=== PATIENT | female | born 1990 | race Caucasian/White ===

== ENCOUNTER 2020-02-24 14:48 | Emergency (ER) | payer BC, SELFPAY ==
--- NOTE | 2020-02-24 14:38 | ECG_ITS ---
APPROVED REPORT Exam: Resting ECG HR:79 bpm ECG Measurements Heart Rate 79 AXES AZ 136 P 58 QRSd 84 QRS 62 QT 388 T 37 QTc 444 <Conclusion> Normal sinus rhythm Normal ECG Electronically signed by : Alex Zuniga, 02/28/2020 08:12:29
[2020-02-24 14:49] VITALS: BP 128/89; PULSE 77; RESP 18; TEMP 36.7; O2SAT 97; BMI 29.9
--- NOTE | 2020-02-24 15:00 | XR_ITS ---
PROCEDURE: XR CHEST PORTABLE CLINICAL HISTORY: cough Cough and chest tightness COMPARISON: No exams were available for comparison FINDINGS: The cardiomediastinal silhouette and pulmonary vascularity are within normal limits. Soft tissue attenuation causes increased density in the mid lower lung zones bilaterally right greater than left. This could obscure an underlying infiltrate especially in the right perihilar region. No definite lobar consolidation or collapse. No acute bony abnormalities. IMPRESSION: Soft tissue attenuation causes increased density in the mid lower lung zones bilaterally right greater than left. This could obscure an underlying infiltrate especially in the right perihilar region. No definite lobar consolidation or collapse. Upright PA and lateral non portable chest x-ray may provide further evaluation Dictated by: Hermann Gonzalez MD 02/24/2020 16:17 Electronically signed by Hermann Gonzalez MD in [place] 02/24/2020 16:17
--- NOTE | 2020-02-24 15:01 | HMH.EDCP ---
ED Disposition Clinical Impression: Suspected COVID-19 virus infection Upper respiratory infection Qualifiers: URI type: unspecified viral URI Qualified Code(s): J06.9 - Acute upper respiratory infection, unspecified Disposition: Home, Self-Care Condition on Discharge: Fair Instructions: DI for Acute Bronchitis, DI for Atypical Chest Pain, Preventing the Spread of Coronavirus Discharge Instructions Additional Instructions: You have been evaluated for chest pain, cough. This is likely due to an upper respiratory infection. Please take Tylenol for pain and fever. Please self isolate until you have a negative test result. Return to the emergency department for any new or worsening symptoms, chest pain, shortness of breath, other concerns. Referrals: PCP,No [Primary Care Provider] - Time of Disposition: 16:30 - Critical Care Critical Care Time: No Attestation: On , the high probability of a clinically significant, sudden or life threatening deterioration of the following system(s) required my full and direct attention, intervention and personal management. The time I documented below is in addition to time spent performing reported procedures but includes the following listed in this critical care notation. Medical Decision Making - Medical Records Medical records reviewed: Yes: I reviewed the patient's medical records. - Kvng Inquiry Pt receiving controlled substance: No Vital Signs: 02/24/20 14:49 02/24/20 16:45 Temperature 98.1 F 98.1 F Temperature Source Oral Oral Pulse Rate 77 Pulse Rate [Right Brachial] 77 Respiratory Rate 18 18 Blood Pressure 128/89 Blood Pressure [Right Arm] 128/89 Blood Pressure Mean [Right Arm] 102 Blood Pressure Source Automatic Cuff Blood Pressure Source [Right Arm] Automatic Cuff Blood Pressure Position Sitting Blood Pressure Position [Right Arm] Sitting 02 Sat by Pulse Oximetry 97 Oxygen Delivery Method Room Air Room Air - Lab Data Lab Results 02/24/20 15:13: WBC 6.6, RBC 3.94 L, Hgb 11.5 L, Hct 33.9 L, MCV 86.2, MCH 29.1, MCHC 33.8, RDW 13.3, Plt Count 298, MPV 8.5, Neut % (Auto) 69.4, Lymph % (Auto) 19.3, Meeker % (Auto) 6.7, Eos % (Auto) 3.4, Baso % (Auto) 1.2, Neut # (Auto) 4.6, Lymph # (Auto) 1.3, Meeker # (Auto) 0.4, Eos # (Auto) 0.2, Baso # (Auto) 0.1 02/24/20 15:13: Sodium 140, Potassium 4.0, Chloride 104, Carbon Dioxide 28, Anion Gap 12.0, BUN 11, Creatinine 0.70, Estimated Creat Clear 183, Estimated GFR 99, Est GFR ( Amer) 120, Glucose 91, Calcium 9.1, Troponin I < 0.01 02/24/20 15:13: Serum HCG, Qual Negative 02/24/20 15:40: Group A Strep Rapid Negative Result diagrams: 02/24/20 15:13 02/24/20 15:13 Orders (Tests/Meds): ORDERS Category Date Time Status SARS-CoV-2, DARRYN Stat Lab 02/24/20 15:20 Received Strep Screen Confirmation Stat Micro 02/24/20 15:40 Received - ECG Data Tracing #1 sinus rhythm with ventricular rate of 79 bpm. QRS 84, QTc 444. no ischemia or arrhythmia ECG initial impression date: 02/24/20 ECG initial impression time: 16:29 Normal Sinus Rhythm: Yes - BRYANT Score for Non-Stemi Age of Patient: <30 years old Heart Rate: 70-89 bpm Systolic Blood Pressure: 120-139 mmhg Serum Creatinine: 0.80-1.19 mg/dl CHF Killip Class: I-No CHF Other Risk Factors: None Non-Stemi Risk Score: 50 Medical Decision Narrative: In summary this is a 29-year-old female presenting to the emergency department with chest pain, sore throat, cough, myalgias. Patient is overall well-appearing on arrival to the emergency department. Vital signs are stable, afebrile. Differential diagnoses include viral upper respiratory infection, bronchitis, pneumonia, COVID. Story does not sound consistent with ACS. Will obtain troponin and EKG to further evaluate. Will also be helpful in assessment for myocarditis. Will obtain CBC, BMP, chest x-ray Initial EKG shows sinus rhythm without evidence of ischemia or arrhythmia. Laboratory res
[2020-02-24 15:22] LABS: Basophils # 0.1 K/mm3 (0-0.2); Basophils % 1.2 % (0.1-2.0); Eosinophils # 0.2 K/mm3 (0.0-0.4); Eosinophils % 3.4 % (0.1-12.0); Hematocrit 33.9 % (37.0-47.0); Hemoglobin 11.5 g/dL (12.2-16.2); Lymphocytes # 1.3 K/mm3 (0.7-4.5); Lymphocytes % 19.3 % (10-50); Mean Corpuscular HGB Conc 33.8 g/dL (31.8-35.4); Mean Corpuscular Hemoglobin 29.1 pg (27.0-31.2); Mean Corpuscular Volume 86.2 fl (81-99); Mean Platelet Volume 8.5 fl (7.4-10.4); Monocytes # 0.4 K/mm3 (0.1-1.0); Monocytes % 6.7 % (1.7-9.3); Neutrophils # 4.6 K/mm3 (1.8-7.8); Neutrophils % 69.4 % (37.0-80.0); Platelet Count 298 K/mm3 (142-424); Red Blood Count 3.94 M/mm3 (4.20-5.40); Red Cell Distribution Width 13.3 % (11.5-17.5); White Blood Count 6.6 K/mm3 (4.8-10.8)
[2020-02-24 15:33] LABS: Blood Urea Nitrogen 11 mg/dl (7-17); Calcium 9.1 mg/dl (8.4-10.2); Carbon Dioxide 28 mmol/L (22.0-30.0); Chloride 104 mmol/L (98-107); Creatinine Clearance Estimated 183 mL/min (50-200); Estimated Glomerular Filt Rate 99 ml/min (>60); GFR (African American) 120 ML/MIN (>60); Glucose 91 mg/dl (74-100); Sodium 140 mmol/L (136-145)
[2020-02-24 15:37] LABS: HCG Qualitative, Serum Negative (Negative)
[2020-02-24 15:46] LABS: Troponin I < 0.01 ng/ml (0.00-0.034)
[2020-02-24 16:14] LABS: Strep Scrn Group A (Rapid) Negative (Negative)
[2020-02-24 16:45] VITALS: BP 128/89; PULSE 77; RESP 18; TEMP 36.7; O2SAT 97
[2020-02-26 06:44] LABS: Covid-19 Nasal PCR Sendout Lex NOT DETECTED
== END 2020-02-24 16:47 | disposition home or self-care (01) ==
PROVIDERS: Emergency Provider Emergency Medicine
DX: J06.9 Acute upper respiratory infection, unspecified (principal); Z03.818 Encounter for observation for suspected exposure to other biological agents ruled out
CPT/HCPCS: 71045; 80048; 84484; 84703; 85025; 87430; 93005; 99284; U0004

== ENCOUNTER 2020-02-26 17:14 | Emergency (ER) | payer BC, SELFPAY ==
[2020-02-26 17:27] VITALS: BP 137/99; PULSE 74; RESP 16; TEMP 36.6; O2SAT 99; BMI 29.9
--- NOTE | 2020-02-26 17:39 | HMH.EDUTC ---
[facility] [place] Dis[place] Clinical Impression: Acute bronchitis Qualifiers: Bronchitis organism: unspecified organism Qualified Code(s): J20.9 - Acute bronchitis, unspecified Disposition: Home, Self-Care Condition on Discharge: Good Instructions: Acute Bronchitis, DI for Acute Bronchitis Additional Instructions: Drink plenty of fluids. Take tylenol or ibuprofen for pain or fever. Take the medications as directed. Follow up with your regular doctor. GO TO THE ER FOR ANY WORSENING SYMPTOMS Prescriptions: methylPREDNISolone [Medrol] 4 mg PO DIRECTED 6 Days #21 tab.ds.pk Transmission Status: Received by [facility] Benzonatate [Tessalon Perle 100mg Cap] 100 mg PO TIDP PRN #30 cap PRN Reason: Cough Transmission Status: Received by [facility] Azithromycin [Z-Quang 250mg Tab*] 250 mg PO UD DOSE PK #6 tab Transmission Status: Received by [facility] Referrals: PCP,No [Primary Care Provider] - Forms: Work/School Release Time of Disposition: 17:46 Medical Decision Making - Medical Records Medical records reviewed: No: I reviewed the patient's medical records. - Kvng Inquiry Pt receiving controlled substance: No Vital Signs: 02/26/20 17:27 02/26/20 17:47 Temperature 97.9 F 98.4 F Temperature Source Oral Oral Pulse Rate 74 Pulse Rate [Left] 74 Respiratory Rate 16 16 Blood Pressure 138/70 Blood Pressure [Right Arm] 137/99 H Blood Pressure Mean [Right Arm] 111 Blood Pressure Source Automatic Cuff Blood Pressure Source [Right Arm] Automatic Cuff Blood Pressure Position Sitting Blood Pressure Position [Right Arm] Sitting 02 Sat by Pulse Oximetry 99 Oxygen Delivery Method Room Air Room Air [facility] [place] HPI - General Stated complaint: bronchitis Time Seen by Provider: 02/26/20 17:39 Mode of Arrival: Ambulatory Source of Information: Patient Limitations: No Limitations Description of Symptoms (Recalled from Triage Doc. by RN): pt c/o cough and advises she was seen the other day. COVID was negative and strep was negative. PT advises she just not feeling much better HEENT Symptoms (Recalled from RN notes): No Resp Symptoms (Recalled from RN notes): Yes (cough) Skin Symptoms (Recalled from RN notes): No MS Symptoms (Recalled from RN notes): No Functional Status (Recalled from RN notes): na - History of Present Illness Provider Complaint: She c/o cough and chest congestion for the past 1 week. She has been tested for COVID-19 2 days ago and it was negative. - Related Data Previous Rx's Medication Instructions Recorded Azithromycin [Z-Quang 250mg Tab*] 250 mg PO UD DOSE PK #6 tab 02/26/20 Benzonatate [Tessalon Perle 100mg 100 mg PO TIDP PRN #30 cap 02/26/20 Cap] methylPREDNISolone [Medrol] 4 mg PO DIRECTED 6 Days #21 02/26/20 tab.ds.pk Allergies Allergy/AdvReac Type Severity Reaction Status Date / Time No Known Allergies Allergy Verified 02/24/20 14:55 - Worker's Comp Is this a Worker's Comp case?: No [facility] History - Hepatitis A Screen Drug use history?: No High risk sexual behaviors?: No History of sexually transmitted infection?: No Currently employed?: No Childcare worker?: No Do you have indoor plumbing?: Yes Do you have electricity?: Yes Attestation statement:: This patient has been screened for Hepatitis A risk factors. I have reviewed the patient's past medical history: Yes - Social History Alcohol Intake: never Occupational Status: employed ROS Obtained: Yes All systems reviewed & no additional complaints - Constitutional Constitutional: Reports chills, Denies fever(s), Reports poor appetite, Reports malaise - Eyes Eyes: Denies eye discharge - ENT Ears, Nose, Mouth, and Throat: Reports as per HPI - Cardiovascular Cardiovascular: Denies chest pain Physical Exam - General General appearance: alert, in no apparent distress - Head Head exam: atraumatic, normocephalic, normal inspection - Eye Eye exam
[2020-02-26 17:47] VITALS: BP 138/70; PULSE 74; RESP 16; TEMP 36.9; O2SAT 98
== END 2020-02-26 17:48 | disposition home or self-care (01) ==
PROVIDERS: Emergency Provider Nurse Practitioner Family
DX: J20.9 Acute bronchitis, unspecified (principal)
CPT/HCPCS: 99201

== ENCOUNTER 2020-12-02 11:21 | Emergency (ER) | payer BC, SELFPAY ==
[2020-12-02 11:31] VITALS: BP 134/78; PULSE 70; RESP 16; TEMP 36.8; O2SAT 98; BMI 29.9
[2020-12-02 11:37] VITALS: BP 129/75; PULSE 72; RESP 14; TEMP 36.9; O2SAT 100
--- NOTE | 2020-12-02 12:10 | HMH.EDUTC ---
[facility] [place] Clinical Impression: Right hip pain Low back pain Qualifiers: Chronicity: acute Back pain laterality: right Sciatica presence: with sciatica Sciatica laterality: sciatica of right side Qualified Code(s): M54.41 - Lumbago with sciatica, right side Disposition: Home, Self-Care Condition on Discharge: Good Instructions: DI for Sciatica Additional Instructions: Go home and rest. It would be best if you rested tomorrow too. No heavy lifting. No twisting. Take the oral medications as directed. Follow up with your regular doctor. GO TO THE ER FOR ANY WORSENING SYMPTOMS OR CONCERN, ESPECIALLY BOWEL OR BLADDER ISSUES, SADDLE AREA NUMBNESS, FEVER, ETC Prescriptions: Cyclobenzaprine HCl [Cyclobenzaprine 10mg Tab*] 10 mg PO BIDP PRN #30 tab PRN Reason: Muscle Spasm Transmission Status: Received by [facility] predniSONE [Prednisone 20mg Tab] 20 mg PO BID 4 Days #8 tab Transmission Status: Received by [facility] Referrals: Soraida Ely APRN [Primary Care Provider] - Forms: Work/School Release Time of Disposition: 12:17 Medical Decision Making - Medical Records Medical records reviewed: No: I reviewed the patient's medical records. - Kvng Inquiry Pt receiving controlled substance: No Vital Signs: 12/02/20 11:31 12/02/20 11:37 12/02/20 12:21 Temperature 98.3 F 98.5 F 98 F Temperature Source Oral Oral Pulse Rate 80 Pulse Rate [Right] 70 72 Respiratory Rate 16 14 14 Blood Pressure 122/71 Blood Pressure [Right Arm] 134/78 129/75 Blood Pressure Mean [Right Arm] 96 93 Blood Pressure Source [Right Arm] Automatic Cuff Blood Pressure Position [Right Arm] Sitting 02 Sat by Pulse Oximetry 98 100 Oxygen Delivery Method Room Air [facility] [place] - General Stated complaint: upper thigh and hip pain Time Seen by Provider: 12/02/20 12:10 Mode of Arrival: Ambulatory Source of Information: Patient Limitations: No Limitations Description of Symptoms (Recalled from Triage Doc. by RN): PT C/O OF R SIDED HIP PAIN THATS SHARP AND RADIATED DOWN TO HER TOES. PT FELL >1 YR AGO. SHE HAS STRUGGLED WITH SCIATICA OFF AND ON SINCE. HEENT Symptoms (Recalled from RN notes): No Resp Symptoms (Recalled from RN notes): No Skin Symptoms (Recalled from RN notes): No MS Symptoms (Recalled from RN notes): Yes (R HIP SHARP PAIN RADIATING TO TOES.) Functional Status (Recalled from RN notes): NA - History of Present Illness Provider Complaint: She states that she has been having right lower back pain that radiates down her right leg. - Related Data Previous Rx's Medication Instructions Recorded Azithromycin [Z-Quang 250mg Tab*] 250 mg PO UD DOSE PK #6 tab 02/26/20 Benzonatate [Tessalon Perle 100mg 100 mg PO TIDP PRN #30 cap 02/26/20 Cap] methylPREDNISolone [Medrol] 4 mg PO DIRECTED 6 Days #21 02/26/20 tab.ds.pk Cyclobenzaprine HCl 10 mg PO BIDP PRN #30 tab 12/02/20 [Cyclobenzaprine 10mg Tab*] predniSONE [Prednisone 20mg 20 mg PO BID 4 Days #8 tab 12/02/20 Tab] Allergies Allergy/AdvReac Type Severity Reaction Status Date / Time No Known Allergies Allergy Verified 02/24/20 14:55 - Worker's Comp Is this a Worker's Comp case?: No [facility] History - Hepatitis A Screen Drug use history?: No High risk sexual behaviors?: No History of sexually transmitted infection?: No Currently employed?: No Childcare worker?: No Do you have indoor plumbing?: Yes Do you have electricity?: Yes Attestation statement:: This patient has been screened for Hepatitis A risk factors. I have reviewed the patient's past medical history: Yes - Social History Alcohol Intake: never Occupational Status: employed ROS Obtained: Yes All systems reviewed & no additional complaints - Constitutional Constitutional: Denies chills, Denies fever(s) Physical Exam - General General appearance: alert, in no apparent distress - Head Head exam: atraumatic, normocephalic,
[2020-12-02 12:21] VITALS: BP 122/71; PULSE 80; RESP 14; TEMP 36.6
== END 2020-12-02 12:24 | disposition home or self-care (01) ==
PROVIDERS: Emergency Provider Nurse Practitioner Family; PCP Nurse Practitioner Family
DX: M54.41 Lumbago with sciatica, right side (principal)
CPT/HCPCS: 99202; G0463

== ENCOUNTER 2021-05-18 17:28 | Emergency (ER) | payer BC, SELFPAY ==
[2021-05-18 17:46] VITALS: BP 133/90; PULSE 85; RESP 19; TEMP 36.8; O2SAT 98; BMI 29.2
[2021-05-18 18:10] LABS: UTC Strep Screen (Rapid) Negative (Negative)
[2021-05-18 18:36] VITALS: BP 133/90; PULSE 85; RESP 16; TEMP 36.8
--- NOTE | 2021-05-18 19:16 | HMH.EDUTC ---
[facility] [place] Clinical Impression: Pharyngitis Qualifiers: Pharyngitis/tonsillitis etiology: unspecified etiology Qualified Code(s): J02.9 - Acute pharyngitis, unspecified Disposition: Home, Self-Care Condition on Discharge: Good Instructions: Strep Throat, DI for Strep Throat Additional Instructions: Drink plenty of fluids. Take tylenol or ibuprofen for pain or fever. Take the medications as directed. Follow up with your regular doctor. GO TO THE ER FOR ANY WORSENING SYMPTOMS Throw your tooth brush away and get a new one. Prescriptions: Azithromycin [Z-Quang 250mg Tab*] 250 mg PO UD DOSE PK #6 tab Transmission Status: Received by [facility] Referrals: Soraida Ely APRN [Primary Care Provider] - Forms: Work/School Release Time of Disposition: 19:21 Medical Decision Making - Medical Records Medical records reviewed: No: I reviewed the patient's medical records. - Kvng Inquiry Pt receiving controlled substance: No Vital Signs: 05/18/21 17:46 05/18/21 18:36 Temperature 98.2 F 98.2 F Temperature Source Oral Pulse Rate 85 Pulse Rate [Left] 85 Respiratory Rate 19 16 Blood Pressure 133/90 Blood Pressure [Right Arm] 133/90 Blood Pressure Mean [Right Arm] 104 02 Sat by Pulse Oximetry 98 - Lab Data Lab results reviewed: Yes: I reviewed the patient's lab results. Lab Results 05/18/21 18:07: Strep Scn Rapid Clinic Negative Orders (Tests/Meds): ORDERS Category Date Time Status Strep Screen Confirmation Routine Micro 05/18/21 18:07 Received [facility] [place] - General Stated complaint: fever,chills,symptoms covid test Time Seen by Provider: 05/18/21 18:25 Mode of Arrival: Ambulatory Source of Information: Patient Limitations: No Limitations Description of Symptoms (Recalled from Triage Doc. by RN): pt c/o fever, sore throat, chest congestion and light headedness. x2 days HEENT Symptoms (Recalled from RN notes): Yes (sore throat and light headed) Resp Symptoms (Recalled from RN notes): Yes (chest congestion) Skin Symptoms (Recalled from RN notes): No MS Symptoms (Recalled from RN notes): No Functional Status (Recalled from RN notes): na - History of Present Illness Provider Complaint: She states that her throat has been sore and she has felt bad for the past 2 days. She is tested regularly for covid-19 at her job at [employer] and those test have been negative. Her last covid-19 test was 3 days ago though. Her daughter currently has strep throat. - Related Data Previous Rx's Medication Instructions Recorded Azithromycin [Z-Quang 250mg Tab*] 250 mg PO UD DOSE PK #6 tab 02/26/20 Benzonatate [Tessalon Perle 100mg 100 mg PO TIDP PRN #30 cap 02/26/20 Cap] methylPREDNISolone [Medrol] 4 mg PO DIRECTED 6 Days #21 02/26/20 tab.ds.pk Cyclobenzaprine HCl 10 mg PO BIDP PRN #30 tab 12/02/20 [Cyclobenzaprine 10mg Tab*] predniSONE [Prednisone 20mg 20 mg PO BID 4 Days #8 tab 12/02/20 Tab] Azithromycin [Z-Quang 250mg Tab*] 250 mg PO UD DOSE PK #6 tab 05/18/21 Allergies Allergy/AdvReac Type Severity Reaction Status Date / Time No Known Allergies Allergy Verified 02/24/20 14:55 - Worker's Comp Is this a Worker's Comp case?: No [facility] History - Hepatitis A Screen Drug use history?: No High risk sexual behaviors?: No History of sexually transmitted infection?: No Currently employed?: No Childcare worker?: No Do you have indoor plumbing?: Yes Do you have electricity?: Yes Attestation statement:: This patient has been screened for Hepatitis A risk factors. I have reviewed the patient's past medical history: Yes - Social History Alcohol Intake: never Occupational Status: employed ROS Obtained: Yes All systems reviewed & no additional complaints - Constitutional Constitutional: Reports chills, Denies fever(s), Reports poor appetite, Reports malaise - Eyes Eyes: Denies eye discharge - ENT Ears, Nose, Mouth, and Throat: Reports as p
== END 2021-05-18 19:29 | disposition home or self-care (01) ==
PROVIDERS: Emergency Provider Nurse Practitioner Family; PCP Nurse Practitioner Family
DX: J02.9 Acute pharyngitis, unspecified (principal)
CPT/HCPCS: 87880; 99202; G0463

== ENCOUNTER → 2021-08-18 02:56 | Outpatient (CLI) | payer BC, SELFPAY ==
[2021-08-18 03:33] LABS: Coronavirus 19, PCR Not Detected (NotDetected); Influenza A, PCR Not Detected (NotDetected); Influenza B, PCR Not Detected (NotDetected)
== END ==
PROVIDERS: PCP Nurse Practitioner Family; Visit Provider Emergency Medicine
DX: Z20.822 Contact with and (suspected) exposure to COVID-19 (principal)
CPT/HCPCS: C9803; U0003; U0005

== ENCOUNTER 2021-08-27 14:35 | Emergency (ER) | payer BC, SELFPAY ==
[2021-08-27 14:45] VITALS: RESP 20; O2SAT 98; BMI 29.2
[2021-08-27 15:03] VITALS: BP 127/87; PULSE 94; RESP 21; TEMP 36.8; O2SAT 97; BMI 29.2
--- NOTE | 2021-08-27 15:13 | HMH.EDUTC ---
[facility] [place] Disposition Clinical Impression: COVID Disposition: Home, Self-Care Condition on Discharge: Good Instructions: DI for COVID-19 (Suspected or Confirmed ) Additional Instructions: self isolate No sign of a bacterial infection. Likely viral. Viruses can take 7-14 days to run their course. Nasal saline and bulb syringe or nose [place] to remove nasal drainage to help with nasal congestion. Hard to eat, drink, sleep with nasal congestion so important to keep this cleaned out. Monitor temp. Tylenol or Motrin as needed for pain or fever Encourage fluids, water, Gatorade, Powerade, Pedialyte if /toddler/child Warm salt water gargles Warm fluids Sore throat lozenges Sleep elevated Humidifier/vaporizer Follow-up immediately for new or worsening symptoms or no noticeable improvement over the next 48-72 hours. Prescriptions: predniSONE [Prednisone 20mg Tab] 20 mg PO BID #10 tab Transmission Status: Pending to [facility] Azithromycin [Zithromax 250mg tab] 250 mg PO DIRECTED #6 tab Transmission Status: Pending to [facility] Referrals: Soraida Ely APRN [Primary Care Provider] - Time of Disposition: 15:19 Medical Decision Making - Kvng Inquiry Pt receiving controlled substance: No Vital Signs: 08/27/21 14:45 08/27/21 15:03 Temperature 98.3 F Temperature Source Oral Pulse Rate [Left] 94 H Respiratory Rate 20 21 Blood Pressure [Right Arm] 127/87 Blood Pressure Mean [Right Arm] 100 02 Sat by Pulse Oximetry 98 97 Oxygen Delivery Method Room Air [facility] [place] HPI - General Chief complaint: Urgent Treatment Center Stated complaint: covid postive, soa, Time Seen by Provider: 08/27/21 15:13 Mode of Arrival: Ambulatory Source of Information: Patient Limitations: No Limitations Description of Symptoms (Recalled from Triage Doc. by RN): pt c/o SOA, dizziness and cough. covid positive on 08/19 HEENT Symptoms (Recalled from RN notes): Yes (dizziness) Resp Symptoms (Recalled from RN notes): Yes (SOA and cough) Skin Symptoms (Recalled from RN notes): No MS Symptoms (Recalled from RN notes): No Functional Status (Recalled from RN notes): wnl - History of Present Illness Provider Complaint: 31 yr old female presents with c/o SOA, dizziness and coughing up dark thick yellow sputum. covid positive on 08/19 - Related Data Previous Rx's Medication Instructions Recorded Azithromycin [Z-Quang 250mg Tab*] 250 mg PO UD DOSE PK #6 tab 02/26/20 Benzonatate [Tessalon Perle 100mg 100 mg PO TIDP PRN #30 cap 02/26/20 Cap] methylPREDNISolone [Medrol] 4 mg PO DIRECTED 6 Days #21 02/26/20 tab.ds.pk Cyclobenzaprine HCl 10 mg PO BIDP PRN #30 tab 12/02/20 [Cyclobenzaprine 10mg Tab*] predniSONE [Prednisone 20mg 20 mg PO BID 4 Days #8 tab 12/02/20 Tab] Azithromycin [Z-Quang 250mg Tab*] 250 mg PO UD DOSE PK #6 tab 05/18/21 Azithromycin [Zithromax 250mg 250 mg PO DIRECTED #6 tab 08/27/21 tab] predniSONE [Prednisone 20mg 20 mg PO BID #10 tab 08/27/21 Tab] Allergies Allergy/AdvReac Type Severity Reaction Status Date / Time No Known Allergies Allergy Verified 02/24/20 14:55 - Worker's Comp Is this a Worker's Comp case?: No [facility] History - Hepatitis A Screen Drug use history?: No High risk sexual behaviors?: No History of sexually transmitted infection?: No Currently employed?: No Childcare worker?: No Do you have indoor plumbing?: Yes Do you have electricity?: Yes Attestation statement:: This patient has been screened for Hepatitis A risk factors. I have reviewed the patient's past medical history: Yes - Social History Alcohol Intake: never Occupational Status: employed ROS Obtained: Yes Systems reviewed as appropriate & no additional complaints - Constitutional Constitutional: Reports system reviewed and no additional complaints, except as docu, Denies chills, Reports fatigue, Reports poor appetite - Eyes Eyes: Reports system reviewed and n
[2021-08-27 15:25] VITALS: BP 127/87; PULSE 94; RESP 21; TEMP 36.8
== END 2021-08-27 15:27 | disposition home or self-care (01) ==
PROVIDERS: Emergency Provider Nurse Practitioner Family; PCP Nurse Practitioner Family
DX: U07.1 COVID-19 (principal); R42 Dizziness and giddiness; R06.02 Shortness of breath
CPT/HCPCS: 99202; G0463

== ENCOUNTER 2021-09-30 13:33 | Emergency (ER) | payer BC, SELFPAY ==
[2021-09-30 15:25] VITALS: BP 129/79; PULSE 79; RESP 18; TEMP 36.6; O2SAT 100; BMI 29.8
--- NOTE | 2021-09-30 15:33 | HMH.EDUTC ---
[facility] [place] Clinical Impression: Pharyngitis Qualifiers: Pharyngitis/tonsillitis etiology: unspecified etiology Qualified Code(s): J02.9 - Acute pharyngitis, unspecified Disposition: Home, Self-Care Condition on Discharge: Good Instructions: Strep Throat, DI for Strep Throat Additional Instructions: Drink plenty of fluids. Take tylenol or ibuprofen for pain or fever. Take the medications as directed. Follow up with your regular doctor. GO TO THE ER FOR ANY WORSENING SYMPTOMS Throw your tooth brush away and get a new one. Prescriptions: Ondansetron [Zofran 4mg ODT] 4 mg PO Q8HP PRN #20 tab PRN Reason: Nausea Transmission Status: Received by [facility] Amoxicillin [Amoxicillin 500mg Tab] 500 mg PO TID 10 Days #30 tab Transmission Status: Received by [facility] predniSONE [Deltasone 10mg tablet] 10 mg PO BID 3 Days #6 tab Transmission Status: Received by [facility] Referrals: Provider,Referral, [Primary Care Provider] - Time of Disposition: 16:40 Medical Decision Making - Medical Records Medical records reviewed: No: I reviewed the patient's medical records. - Kvng Inquiry Pt receiving controlled substance: No Vital Signs: 09/30/21 15:25 09/30/21 17:04 Temperature 97.9 F 97.9 F Temperature Source Oral Pulse Rate 79 Pulse Rate [Left] 79 Respiratory Rate 18 18 Blood Pressure 129/79 Blood Pressure [Right Arm] 129/79 Blood Pressure Mean [Right Arm] 95 02 Sat by Pulse Oximetry 100 - Lab Data Lab results reviewed: Yes: I reviewed the patient's lab results. Lab Results 09/30/21 15:25: Strep Scn Rapid Clinic Negative [facility] [place] - General Stated complaint: sore throat, headache Time Seen by Provider: 09/30/21 15:33 - History of Present Illness Provider Complaint: She c/o sore throat for the past 2 days - Related Data Previous Rx's Medication Instructions Recorded Azithromycin [Z-Quang 250mg Tab*] 250 mg PO UD DOSE PK #6 tab 02/26/20 Benzonatate [Tessalon Perle 100mg 100 mg PO TIDP PRN #30 cap 02/26/20 Cap] methylPREDNISolone [Medrol] 4 mg PO DIRECTED 6 Days #21 02/26/20 tab.ds.pk Cyclobenzaprine HCl 10 mg PO BIDP PRN #30 tab 12/02/20 [Cyclobenzaprine 10mg Tab*] predniSONE [Prednisone 20mg 20 mg PO BID 4 Days #8 tab 12/02/20 Tab] Azithromycin [Z-Quang 250mg Tab*] 250 mg PO UD DOSE PK #6 tab 05/18/21 Azithromycin [Zithromax 250mg 250 mg PO DIRECTED #6 tab 08/27/21 tab] predniSONE [Prednisone 20mg 20 mg PO BID #10 tab 08/27/21 Tab] Amoxicillin [Amoxicillin 500mg Tab] 500 mg PO TID 10 Days #30 tab 09/30/21 Ondansetron [Zofran 4mg ODT] 4 mg PO Q8HP PRN #20 tab 09/30/21 predniSONE [Deltasone 10mg tablet] 10 mg PO BID 3 Days #6 tab 09/30/21 Allergies Allergy/AdvReac Type Severity Reaction Status Date / Time No Known Allergies Allergy Verified 02/24/20 14:55 [facility] History - Hepatitis A Screen Attestation statement:: This patient has been screened for Hepatitis A risk factors. I have reviewed the patient's past medical history: Yes - Social History Alcohol Intake: never Occupational Status: employed ROS Obtained: Yes All systems reviewed & no additional complaints - Constitutional Constitutional: Reports system reviewed and no additional complaints, except as docu - Eyes Eyes: Reports system reviewed and no additional complaints, except as docu - ENT Ears, Nose, Mouth, and Throat: Reports system reviewed and no additional complaints, except as docu - Cardiovascular Cardiovascular: Reports system reviewed and no additional complaints, except as docu - Respiratory Respiratory: Reports system reviewed and no additional complaints, except as docu Physical Exam - General General appearance: alert, in no apparent distress - Head Head exam: atraumatic, normocephalic, normal inspection - Eye Eye exam: Present: normal appearance, PERRL, EOMI - ENT ENT
[2021-09-30 15:34] LABS: UTC Strep Screen (Rapid) Negative (Negative)
[2021-09-30 17:04] VITALS: BP 129/79; PULSE 79; RESP 18; TEMP 36.6
== END 2021-09-30 17:05 | disposition home or self-care (01) ==
PROVIDERS: Emergency Provider Nurse Practitioner Family
DX: J02.9 Acute pharyngitis, unspecified (principal)
CPT/HCPCS: 87880; 99202; G0463

== ENCOUNTER 2021-11-30 14:57 | Emergency (ER) | payer BC, SELFPAY ==
[2021-11-30 15:21] VITALS: BP 141/92; PULSE 80; RESP 18; TEMP 36.6; O2SAT 99; BMI 31.5
--- NOTE | 2021-11-30 15:58 | XR_ITS ---
FINAL REPORT TECHNIQUE: Chest PA & Lateral CLINICAL HISTORY: cough, non-smoker. Tubal ligation. COMPARISON: February 24, 2020 FINDINGS: 2 views of the chest were performed. The heart size is normal. The mediastinum is within normal limits. There is no acute cardiopulmonary process. There are no pleural effusions. There is no pneumothorax. The bony thorax appears intact. IMPRESSION: No acute cardiopulmonary process. Reviewed, Interpreted and Dictated by Romero Padilla MD Transcribed by Lara Lewis Authenticated by Romero Padilla MD on 11/30/2021 04:44:[address] [facility]
--- NOTE | 2021-11-30 15:58 | HMH.EDUTC ---
[facility] [place] Clinical Impression: Acute bronchitis Qualifiers: Bronchitis organism: unspecified organism Qualified Code(s): J20.9 - Acute bronchitis, unspecified Acute pharyngitis Qualifiers: Pharyngitis/tonsillitis etiology: unspecified etiology Qualified Code(s): J02.9 - Acute pharyngitis, unspecified Disposition: Home, Self-Care Condition on Discharge: Good Instructions: Acute Bronchitis, DI for Acute Bronchitis Additional Instructions: Drink plenty of fluids. Take tylenol or ibuprofen for pain or fever. Take the medications as directed. Follow up with your regular doctor. GO TO THE ER FOR ANY WORSENING SYMPTOMS Prescriptions: Promethazine/Dextromethorphan [Promethazine-Dm Syrup] 5 ml PO Q6HP PRN #240 ml PRN Reason: Cough Transmission Status: Received by [id number] methylPREDNISolone [Medrol] 4 mg PO DIRECTED 6 Days #21 packet Transmission Status: Received by [facility] guaiFENesin [Mucinex 600mg tablet] 1 - 2 tab PO BIDP PRN #30 tab PRN Reason: Congestion Transmission Status: Received by [id number] Azithromycin [Z-Quang 250mg Tab*] 250 mg PO UD DOSE PK #6 tab Transmission Status: Received by [facility] Referrals: Provider,Referral, MD [Primary Care Provider] - Forms: Work/School Release Time of Disposition: 17:06 Medical Decision Making - Medical Records Medical records reviewed: No: I reviewed the patient's medical records. - Kvng Inquiry Pt receiving controlled substance: No Vital Signs: 11/30/21 15:21 11/30/21 17:16 Temperature 98 F 98 F Temperature Source Oral Pulse Rate 80 Pulse Rate [Left] 80 Respiratory Rate 18 18 Blood Pressure 141/92 H Blood Pressure [Right Arm] 141/92 H Blood Pressure Mean [Right Arm] 108 02 Sat by Pulse Oximetry 99 - Lab Data Lab results reviewed: Yes: I reviewed the patient's lab results. Lab Results 11/30/21 16:27: Influenza Type A Ag Negative, Influenza Type B Ag Negative [facility] [place] HPI - General Stated complaint: shortness of breathe, cough, headache, nausea Time Seen by Provider: 11/30/21 15:58 Mode of Arrival: Ambulatory Source of Information: Patient Limitations: No Limitations Description of Symptoms (Recalled from Triage Doc. by RN): pt c/o a RAHMAN, weakness and chest congestion. pt states she was seen at a [facility] in [place] yesterday but they didn't treat her for anything. pt thinks she has bronchitis. HEENT Symptoms (Recalled from RN notes): Yes Resp Symptoms (Recalled from RN notes): Yes Skin Symptoms (Recalled from RN notes): No MS Symptoms (Recalled from RN notes): No Functional Status (Recalled from RN notes): wnl - History of Present Illness Provider Complaint: She states that she has had a cough and chest congestion for the past 1 week. - Related Data Previous Rx's Medication Instructions Recorded Azithromycin [Z-Quang 250mg Tab*] 250 mg PO UD DOSE PK #6 tab 02/26/20 Benzonatate [Tessalon Perle 100mg 100 mg PO TIDP PRN #30 cap 02/26/20 Cap] methylPREDNISolone [Medrol] 4 mg PO DIRECTED 6 Days #21 02/26/20 tab.ds.pk Cyclobenzaprine HCl 10 mg PO BIDP PRN #30 tab 12/02/20 [Cyclobenzaprine 10mg Tab*] predniSONE [Prednisone 20mg 20 mg PO BID 4 Days #8 tab 12/02/20 Tab] Azithromycin [Z-Quang 250mg Tab*] 250 mg PO UD DOSE PK #6 tab 05/18/21 Azithromycin [Zithromax 250mg 250 mg PO DIRECTED #6 tab 08/27/21 tab] predniSONE [Prednisone 20mg 20 mg PO BID #10 tab 08/27/21 Tab] Amoxicillin [Amoxicillin 500mg Tab] 500 mg PO TID 10 Days #30 tab 09/30/21 Ondansetron [Zofran 4mg ODT] 4 mg PO Q8HP PRN #20 tab 09/30/21 predniSONE [Deltasone 10mg tablet] 10 mg PO BID 3 Days #6 tab 09/30/21 Azithromycin [Z-Quang 250mg Tab*] 250 mg PO UD DOSE PK #6 tab 11/30/21 Promethazine/Dextromethorphan 5 ml PO Q6HP PRN #240 ml 11/30/21 [Promethazine-Dm Syrup] guaiFENesin [Mucinex 600mg tablet] 1 - 2 tab PO BIDP PRN #30 tab 11/30/21 methylPREDNISolone [Medrol
[2021-11-30 16:42] LABS: UTC Influenza A Antigen Negative (Negative)
[2021-11-30 16:43] LABS: UTC Influenza B Antigen Negative (Negative)
[2021-11-30 17:16] VITALS: BP 141/92; PULSE 80; RESP 18; TEMP 36.6
== END 2021-11-30 17:17 | disposition home or self-care (01) ==
PROVIDERS: Emergency Provider Nurse Practitioner Family
DX: J20.9 Acute bronchitis, unspecified; J02.9 Acute pharyngitis, unspecified; R51.9 Headache, unspecified; R11.0 Nausea; Z79.899 Other long term (current) drug therapy
CPT/HCPCS: 71046; 87804; 99213; G0463

== ENCOUNTER 2021-12-13 23:31 | Emergency (ER) | payer BC, SELFPAY ==
[2021-12-13 23:31] VITALS: BP 140/99; PULSE 83; RESP 20; TEMP 36.9; O2SAT 100; BMI 30.7
[2021-12-13 23:54] VITALS: BMI 30.7
--- NOTE | 2021-12-13 23:55 | ECG_ITS ---
APPROVED REPORT Exam: Resting ECG HR:87 bpm ECG Measurements Heart Rate 87 AXES IN 146 P 57 QRSd 98 QRS 72 QT 370 T 58 QTc 414 Conclusion SINUS RHYTHM NORMAL ECG UNCONFIRMED REPORT Electronically signed by : Alex Zuniga MD 12/15/2021 21:11:48
--- NOTE | 2021-12-14 | CT_ITS ---
PROCEDURE INFORMATION: Exam: CTA Chest With Contrast Exam date and time: 12/14/2021 12:32 AM Age: 31 years old Clinical indication: Shortness of breath; Sternal or substernal pain; Additional info: Jerome SOKierra TECHNIQUE: Imaging protocol: Computed tomographic angiography of the chest with contrast. 3D rendering (Not supervised by radiologist): MIP and/or 3D reconstructed images were created by the technologist. Radiation optimization: All CT scans at this facility use at least one of these dose optimization techniques: automated exposure control; mA and/or kV adjustment per patient size (includes targeted exams where dose is matched to clinical indication); or iterative reconstruction. Contrast material: ISOVUE; Contrast volume: 70 ml; Contrast route: INTRAVENOUS (IV); COMPARISON: CR XR CHEST 2V 12/14/2021 12:23 AM FINDINGS: Pulmonary arteries: Normal. No pulmonary emboli. Aorta: Unremarkable. No aortic aneurysm. No aortic dissection. Lungs: Unremarkable. No consolidation. No masses. Pleural spaces: Unremarkable. No pneumothorax. No pleural effusion. Heart: Unremarkable. No cardiomegaly. No pericardial effusion. Lymph nodes: Unremarkable. No enlarged lymph nodes. Bones/joints: Unremarkable. No acute fracture. Soft tissues: Unremarkable. IMPRESSION: No acute findings.
--- NOTE | 2021-12-14 | XR_ITS ---
PROCEDURE INFORMATION: Exam: XR Chest Exam date and time: 12/14/2021 12:23 AM Age: 31 years old Clinical indication: Shortness of breath; Sternal or substernal pain; Additional info: Cp TECHNIQUE: Imaging protocol: XR of the chest. Views: 2 views. COMPARISON: CR XR CHEST 2V 11/30/2021 4:13 PM FINDINGS: Lungs: Unremarkable. No consolidation. Pleural spaces: Unremarkable. No pleural effusion. No pneumothorax. Heart/Mediastinum: Unremarkable. No cardiomegaly. Bones/joints: Unremarkable. IMPRESSION: No acute findings.
--- NOTE | 2021-12-14 00:13 | HMH.EDCP ---
ED Disposition Clinical Impression: Atypical chest pain Disposition: Home, Self-Care Condition on Discharge: Good Instructions: DI for Atypical Chest Pain Additional Instructions: fluids and ct anbd cxr -ok Referrals: Provider,Referral, [Referring] - - Critical Care Critical Care Time: No Attestation: On 12/13/21, the high probability of a clinically significant, sudden or life threatening deterioration of the following system(s) required my full and direct attention, intervention and personal management. The time I documented below is in addition to time spent performing reported procedures but includes the following listed in this critical care notation. Medical Decision Making - Medical Records Medical records reviewed: Yes: I reviewed the patient's medical records. - Kvng Inquiry Pt receiving controlled substance: No Vital Signs: 12/13/21 23:31 Temperature 98.5 F Temperature Source Oral Pulse Rate [Right] 83 Respiratory Rate 20 Blood Pressure [Right Arm] 140/99 H Blood Pressure Mean [Right Arm] 112 Blood Pressure Source [Right Arm] Automatic Cuff 02 Sat by Pulse Oximetry 100 Oxygen Delivery Method Room Air - Lab Data Lab results reviewed: Yes: I reviewed the patient's lab results. Lab Results 12/13/21 00:00: WBC 7.1, RBC 4.75, Hgb 13.9, Hct 40.7, MCV 85.8, MCH 29.3, MCHC 34.2, RDW 14.2, Plt Count 362, MPV 8.2, Neut % (Auto) 58.7, Lymph % (Auto) 25.3, [place] % (Auto) 8.7, Eos % (Auto) 4.4, Baso % (Auto) 2.9 H, Neut # (Auto) 4.2, Lymph # (Auto) 1.8, [place] # (Auto) 0.6, Eos # (Auto) 0.3, Baso # (Auto) 0.2, ESR 15 12/13/21 00:00: Sodium 141, Potassium 3.5, Chloride 105, Carbon Dioxide 29, Anion Gap 10.5, BUN 11, Creatinine 0.80, Estimated Creat Clear 161, Estimated GFR 84, Est GFR ( Amer) 101, Glucose 90, Calcium 9.4, Total Bilirubin 0.4, Direct Bilirubin 0.2, Conjugated Bilirubin 0.0, Indirect Bilirubin 0.2, Unconjugated Bilirubin 0.3, AST 40 H, ALT 38, Alkaline Phosphatase 99, Troponin I < 0.01, C-Reactive Protein 7.9 H, Total Protein 7.6, Albumin 4.4 12/13/21 00:00: Serum HCG, Qual Negative 12/13/21 00:00: NT-Pro-B Natriuret Pep 22.6 12/14/21 00:00: TSH 5.02 H, Thyroxine (T4) 8.4 12/14/21 01:48: Urine Color Yellow, Urine Appearance Clear, Urine pH 6.0, Ur Specific [place] 1.025, Urine Protein Negative, Urine Glucose (UA) Negative, Urine Ketones Negative, Urine Blood 2+, Urine Nitrate Negative, Urine Bilirubin Negative, Urine Urobilinogen 1.0, Ur Leukocyte Esterase Negative Result diagrams: 12/13/21 00:00 12/13/21 00:00 Orders (Tests/Meds): ED MEDICATIONS Discontinued Medications Generic Name Dose Route Start Last Admin Trade Name Freq PRN Reason Stop Dose Admin Iopamidol 70 ml 12/14/21 00:41 12/14/21 00:42 Iopamidol-370 (76%);100ml Bottle IV 12/14/21 00:42 70 ml ONCE ONE Administration Sodium Chloride 50 ml 12/14/21 00:41 12/14/21 00:42 0.9 % Sodium Chloride 50 Ml Vial IV 12/14/21 00:42 50 ml ONCE ONE Administration Sodium Chloride 10 ml 12/14/21 00:41 12/14/21 00:42 Sodium Chloride 0.9% 10ml Syr (Rad Only) IV 12/14/21 00:42 10 ml ONCE ONE Administration ORDERS Category Date Time Status Basic Metabolic Panel Stat Lab 12/13/21 23:55 Results C-Reactive Protein Stat Lab 12/13/21 23:55 Results Liver Panel Stat Lab 12/13/21 23:55 Results Procalcitonin Stat Lab 12/13/21 23:55 Results Troponin I Q3H Lab 12/14/21 03:00 Ordered Troponin I Q3H Lab 12/14/21 06:00 Ordered Troponin I Stat Lab 12/13/21 23:55 Results Urinalysis and Microscopic Stat Lab 12/14/21 01:48 Results - Radiology Data #1 Image(s): Chest Image Reviewed: Yes I have reviewed radiologist's interpretation Preliminary Findings: Normal/NAD - CT Data CT Scan: Chest Time Received: 02:[address] Reviewed: Yes: I have viewed the radiologist's interpretation Preliminary Findings: Normal/NAD - ECG Data Tracing #1 Normal Sinus Rhythm: Yes Ischemic ye
[2021-12-14 00:19] LABS: Basophils # 0.2 K/mm3 (0-0.2); Basophils % 2.9 % (0.1-2.0); Eosinophils # 0.3 K/mm3 (0.0-0.4); Eosinophils % 4.4 % (0.1-12.0); Hematocrit 40.7 % (37.0-47.0); Hemoglobin 13.9 g/dL (12.2-16.2); Lymphocytes # 1.8 K/mm3 (0.7-4.5); Lymphocytes % 25.3 % (10-50); Mean Corpuscular HGB Conc 34.2 g/dL (31.8-35.4); Mean Corpuscular Hemoglobin 29.3 pg (27.0-31.2); Mean Corpuscular Volume 85.8 fl (81-99); Mean Platelet Volume 8.2 fl (7.4-10.4); Monocytes # 0.6 K/mm3 (0.1-1.0); Monocytes % 8.7 % (1.7-9.3); Neutrophils # 4.2 K/mm3 (1.8-7.8); Neutrophils % 58.7 % (37.0-80.0); Platelet Count 362 K/mm3 (142-424); Red Blood Count 4.75 M/mm3 (4.20-5.40); Red Cell Distribution Width 14.2 % (11.5-17.5); White Blood Count 7.1 K/mm3 (4.8-10.8)
[2021-12-14 00:23] LABS: Chloride 105 mmol/L (98-107); Potassium 3.5 mmoL/L (3.5-5.1); Sodium 141 mmol/L (136-145)
[2021-12-14 00:25] LABS: Alanine Aminotransferase 38 U/L (12-78); Aspartate Amino Transferase 40 U/L (14-36); Bilirubin,Unconjugated 0.3 mg/dL (0.0-1.1); Blood Urea Nitrogen 11 mg/dl (7-17); Creatinine Clearance Estimated 161 mL/min (50-200); Estimated Glomerular Filt Rate 84 ml/min (>60); GFR (African American) 101 ML/MIN (>60); HCG Qualitative, Serum Negative (Negative)
[2021-12-14 00:26] LABS: Albumin Level 4.4 g/dl (3.5-5.0); Alkaline Phosphatase 99 U/L (38-126); Anion Gap 10.5 mEq/L (5-15); Bilirubin,Direct 0.2 mg/dl (0.0-0.4); Bilirubin,Indirect 0.2 mg/dL (0.0-0.9); Bilirubin,Total 0.4 mg/dl (0.2-1.3); Calcium 9.4 mg/dl (8.4-10.2); Carbon Dioxide 29 mmol/L (22.0-30.0); Glucose 90 mg/dl (74-100); Total Protein,Serum 7.6 g/dl (6.3-8.2)
[2021-12-14 00:31] LABS: C-Reactive Protein 7.9 mg/L (0-4)
[2021-12-14 00:37] LABS: NT Pro Brain Natriuretic Pep. 22.6 pg/mL (0-125)
--- NOTE | 2021-12-14 00:37 | PC.NURSE ---
Pt attempted to give urine sample but was unable.
[2021-12-14 00:48] LABS: Troponin I < 0.01 ng/ml (0.00-0.034)
[2021-12-14 00:50] LABS: Erythrocyte Sedimentation Rate 15 mm/hr (0-20)
[2021-12-14 00:59] LABS: T4 (Thyroxine) 8.4 ug/dl (5.53-11.0)
[2021-12-14 01:13] LABS: Thyroid Stimulating Hormone 5.02 uIU/mL (0.465-4.68)
[2021-12-14 01:52] LABS: Microscopic, Urine URINE MICROSCOPIC (MICROSCOPIC)
[2021-12-14 01:53] LABS: Appearance,Urine CLEAR (Clear); Bilirubin,Urine Negative (Negative); Blood, Urine 2+ (Negative); Color,Urine YELLOW (Yellow); Glucose,Urine (UA) Negative (Negative); Ketones,Urine Negative (Negative); Leukocyte Esterase,Urine Negative (Negative); Nitrate,Urine Negative (Negative); Protein,Urine Negative (Negative); Specific Gravity, Urine 1.025 (1.005-1.030)
--- NOTE | 2021-12-14 01:53 | PC.NURSE ---
Updated pt on POC. Gave warm blankets.
[2021-12-14 02:06] LABS: Procalcitonin 0.059 ng/mL (0.0-2.0)
[2021-12-14 02:16] LABS: Bacteria,Urine 2+ /lpf; Mucus,Urine 1+ /lpf
[2021-12-14 03:05] VITALS: BP 114/76; PULSE 66; RESP 16; TEMP 37.1
[2021-12-14 03:10] VITALS: BP 114/76; PULSE 76; RESP 16; TEMP 36.6
== END 2021-12-14 03:12 | disposition home or self-care (01) ==
PROVIDERS: Emergency Provider Emergency Medicine; PCP Nurse Practitioner Family
DX: R07.9 Chest pain, unspecified (principal); M54.6 Pain in thoracic spine; R06.02 Shortness of breath; R11.0 Nausea; R03.0 Elevated blood-pressure reading, without diagnosis of hypertension; Z79.899 Other long term (current) drug therapy; Z82.49 Family history of ischemic heart disease and other diseases of the circulatory system
CPT/HCPCS: 71046; 71275; 80048; 80076; 81001; 83880; 84145; 84436; 84443; 84484; 84703; 85025; 85651; 86140; 87086; 93005; 96374; 96375; 99285; Q9967

== ENCOUNTER 2022-03-27 18:48 | Emergency (ER) | payer BC, SELFPAY ==
[2022-03-27 20:20] VITALS: BP 128/70; PULSE 88; RESP 20; TEMP 36.7; O2SAT 97; BMI 30.7
--- NOTE | 2022-03-27 20:29 | HMH.EDUTC ---
[facility] [place] Clinical Impression: Strep throat Disposition: Home, Self-Care Condition on Discharge: Good Instructions: Strep Throat, DI for Strep Throat Additional Instructions: Drink plenty of fluids. Take tylenol or ibuprofen for pain or fever. Take the medications as directed. Follow up with your regular doctor. GO TO THE ER FOR ANY WORSENING SYMPTOMS Throw your tooth brush away and get a new one. Prescriptions: Brompheniramine/Pseudoephed/Dm [Bromfed Dm Cough Syrup] 5 ml PO Q6HP PRN #240 ml PRN Reason: Cough Transmission Status: Received by [facility] Amoxicillin [Amoxicillin 500mg Tab] 500 mg PO TID 10 Days #30 tab Transmission Status: Received by [facility] methylPREDNISolone [Medrol] 4 mg PO DIRECTED 6 Days #21 packet Transmission Status: Received by [facility] Referrals: Soraida Ely APRN [Primary Care Provider] - Forms: Work/School Release Time of Disposition: 20:37 Medical Decision Making - Medical Records Medical records reviewed: No: I reviewed the patient's medical records. - Kvng Inquiry Pt receiving controlled substance: No Vital Signs: 03/27/22 20:20 03/27/22 20:56 Temperature 98.1 F 98.1 F Temperature Source Oral Pulse Rate 88 Pulse Rate [Right] 88 Respiratory Rate 20 20 Blood Pressure 128/70 Blood Pressure [Right Arm] 128/70 Blood Pressure Mean [Right Arm] 89 Blood Pressure Source [Right Arm] Automatic Cuff Blood Pressure Position [Right Arm] Sitting 02 Sat by Pulse Oximetry 97 Oxygen Delivery Method Room Air - Lab Data Lab results reviewed: Yes: I reviewed the patient's lab results. Lab Results 03/27/22 20:19: Strep Scn Rapid Clinic Positive A Orders (Tests/Meds): ED MEDICATIONS Discontinued Medications Generic Name Dose Route Start Last Admin Trade Name Freq PRN Reason Stop Dose Admin Ceftriaxone Sodium 1 gm 03/27/22 20:37 03/27/22 20:50 Ceftriaxone 1gm Vial IM 03/27/22 20:38 1 gm ONCE ONE Administration Lidocaine HCl 0 ml 03/27/22 20:37 03/27/22 20:50 Lidocaine 1% 5ml Pf Vial IM 03/27/22 20:38 2 ml ONCE ONE Administration Methylprednisolone Sodium Succinate 125 mg 03/27/22 20:37 03/27/22 20:50 Methylprednisolone Sod Succ 125mg Vial IM 03/27/22 20:38 125 mg ONCE ONE Administration [facility] [place] HPI - General Stated complaint: fever,Sore throat,cough Time Seen by Provider: 03/27/22 20:29 - History of Present Illness Provider Complaint: she c/o sore throat for the past 2 days. - Related Data Home Medications Medication Instructions Recorded Confirmed Levothyroxine Sodium [Tirosint] 75 mcg PO DAILY 12/14/21 12/14/21 Previous Rx's Medication Instructions Recorded Amoxicillin [Amoxicillin 500mg Tab] 500 mg PO TID 10 Days #30 tab 03/27/22 Brompheniramine/Pseudoephed/Dm 5 ml PO Q6HP PRN #240 ml 03/27/22 [Bromfed Dm Cough Syrup] methylPREDNISolone [Medrol] 4 mg PO DIRECTED 6 Days #21 03/27/22 packet Allergies Allergy/AdvReac Type Severity Reaction Status Date / Time No Known Allergies Allergy Verified 02/24/20 14:55 [facility] [place] History - Hepatitis A Screen Attestation statement:: This patient has been screened for Hepatitis A risk factors. I have reviewed the patient's past medical history: Yes - Social History Alcohol Intake: never Occupational Status: employed ROS Obtained: Yes All systems reviewed & no additional complaints - Constitutional Constitutional: Reports as per HPI - Eyes Eyes: Denies blurry vision - ENT Ears, Nose, Mouth, and Throat: Reports as per HPI - Cardiovascular Cardiovascular: Denies chest pain - Respiratory Respiratory: Denies chest congestion, Reports cough Physical Exam - General General appearance: alert, in no apparent distress - Head Head exam: atraumatic, normocephalic, normal inspection - Eye Eye exam: Present: normal appearance, PERRL, EOMI - ENT ENT exam
[2022-03-27 20:35] LABS: UTC Strep Screen (Rapid) Positive (Negative)
[2022-03-27 20:56] VITALS: BP 128/70; PULSE 88; RESP 20; TEMP 36.7; O2SAT 97
== END 2022-03-27 21:08 | disposition home or self-care (01) ==
PROVIDERS: Emergency Provider Nurse Practitioner Family; PCP Nurse Practitioner Family
DX: J02.0 Streptococcal pharyngitis (principal)
CPT/HCPCS: 87880; 99212; G0463; J0696

== ENCOUNTER 2022-06-21 08:37 | Emergency (ER) | payer BC, SELFPAY ==
[2022-06-21 09:05] VITALS: BP 136/83; PULSE 88; RESP 20; TEMP 36.7; O2SAT 98; BMI 30.9
[2022-06-21 09:32] LABS: UTC Strep Screen (Rapid) Negative (Negative)
--- NOTE | 2022-06-21 09:32 | EXP.UTC ---
Discharge Plan Disposition Patient Disposition: Home, Self-Care Condition: Good Prescriptions Prescriptions: No Action levothyroxine 88 mcg tablet 88 mcg PO DAILY Label Comments: TAKE 1 TABLET BY MOUTH ONCE DAILY Referrals Follow up/Referrals: Provider,Referral, MD [Primary Care Provider] - See instructions Activity Restrictions/Add. Instructions Additional Instructions/Restrictions: *Monitor Temp, Over the counter Motrin or Tylenol as directed/as needed Tylenol every 4 hours and Motrin every 6 hours (as long as your family doctor has told you that you can take it) for fever or pain. and straight to ER if unable to lower temp less than 101.0 after medication given *Warm salt water gargles may help to soothe the throat *Throat Lozenges? *Warm fluids like tea with honey may help to soothe the throat? *Sleep elevated *Humidifier/Vaporizer Your throat swab was sent for culture. Those results are typically sent to your primary care. Be sure to follow up in 2-3 days with your family doctor/primary care physician if no improvement so they can review those result and treat if necessary. If you don?t have a primary care doctor, I recommend you get one but in the mean time, you will have to return to a walk in clinic Follow up IMMEDIATELY for new or worsening symptoms or no Noticeable improvement over the next 48-72 hours. 911 for difficulty breathing or swallowing You were tested for today for COVID19 your test result should be back in the next 24-48 hours, you may check your results on the [facility] Clinical Impressions Clinical Impression: Upper respiratory infection Stand Alone Forms Stand Alone Forms: Work/School Release Instructions Patient Instructions: Sore Throat, DI for Nasal Congestion Discharge ED Provider: Isa Vaughan [facility] [place] HPI General Stated complaint: sore throat, body aches Mode of Arrival: Ambulatory Source of Information: Patient Limitations: No Limitations Time Seen by Provider: 06/21/22 09:33 Description of Symptoms (Recalled from Triage Doc. by RN): PATIENT C/O CONGESTION AND SORE THROAT SINCE YESTERDAY HEENT Symptoms (Recalled from RN notes): Yes Resp Symptoms (Recalled from RN notes): No Skin Symptoms (Recalled from RN notes): No MS Symptoms (Recalled from RN notes): No Functional Status (Recalled from RN notes): WNL History of Present Illness Provider Complaint: Patient states that she has been having nasal congestion and sore throat that started yesterday States today she was still feeling bad today so she came in to get checked for strep throat States that she feels like she did when she had COVID Related Data Home Medications Medication Instructions Recorded Confirmed levothyroxine 88 mcg tablet 88 mcg PO DAILY THYROID 06/21/22 06/21/22 Allergies Allergy/AdvReac Type Severity Reaction Status Date / Time No Known Allergies Allergy Verified 02/24/20 14:55 Worker's Comp Is this a Worker's Comp case?: No [facility] Medical History (Updated 06/21/22 @ 09:36 by Isa Vaughan APRN) Thyroid disease Surgical History (Updated 06/21/22 @ 09:20 by Bernadette Diallo RN) History of appendectomy History of section History of tubal ligation Social History (Updated 06/21/22 @ 09:20 by Bernadette Diallo RN) Smoking Status: Unknown if ever smoked alcohol intake: never current occupational status: employed Travel in the last 8 weeks: None ROS Obtained: Yes All systems reviewed & no additional complaints except as documented and Yes Systems reviewed as appropriate & no additional complaints except as documented Constitutional Constitutional: Reports system reviewed and no additional complaints, except as documented, Reports as per HPI and Reports headache(s) ENT Ears, Nose, Mouth, and Throat: Reports system reviewed and no additional complaints, except as documented, Reports as per HPI, Reports headache(s), R
[2022-06-21 09:44] VITALS: BP 136/83; PULSE 88; RESP 20; TEMP 36.7; O2SAT 98
[2022-06-21 10:00] LABS: Adenovirus,PCR Not Detected (NotDetected); Coronavirus 229E Not Detected (NotDetected); Coronavirus NL63 Not Detected (NotDetected); Coronavirus OC43 Not Detected (NotDetected); Coronovirus HKU1,PCR Not Detected (NotDetected); Human Metapneumovirus Not Detected (NotDetected); Rhinovirus/Enterovirus Not Detected (NotDetected)
[2022-06-21 10:01] LABS: Bordetella Pertussis Not Detected (NotDetected); Chlamydophila Pneumoniae, PCR Not Detected (NotDetected); Coronavirus 19, PCR Not Detected (NotDetected); Influenza A, PCR Not Detected (NotDetected); Influenza AH1, 2009 Not Detected (NotDetected); Influenza AH1, PCR Not Detected (NotDetected); Influenza AH3,PCR Not Detected (NotDetected); Influenza B, PCR Not Detected (NotDetected); Mycoplasma Pneumoniae, PCR Not Detected (NotDetected); Parainfluenza 1, PCR Not Detected (NotDetected); Parainfluenza 2, PCR Not Detected (NotDetected); Parainfluenza 3, PCR Not Detected (NotDetected); Parainfluenza 4, PCR Not Detected (NotDetected); Respiratory Syncytial Virus Not Detected (NotDetected)
== END 2022-06-21 09:49 | disposition home or self-care (01) ==
PROVIDERS: Emergency Provider Nurse Practitioner
DX: J06.9 Acute upper respiratory infection, unspecified (principal)
CPT/HCPCS: 87581; 87632; 87798; 87880; 99212; C9803; G0463; U0003; U0005

== ENCOUNTER 2022-10-30 16:49 | Emergency (ER) | payer BC, SELFPAY ==
[2022-10-30 17:15] VITALS: BP 129/94; PULSE 110; RESP 20; TEMP 37.3; O2SAT 98; BMI 30.9
[2022-10-30 17:40] LABS: UTC Influenza A Antigen Negative (Negative); UTC Strep Screen (Rapid) Negative (Negative)
[2022-10-30 17:41] LABS: UTC Influenza B Antigen Negative (Negative)
--- NOTE | 2022-10-30 17:41 | EXP.UTC ---
Discharge Plan Disposition Patient Disposition: Home, Self-Care Condition: Good Prescriptions Prescriptions: New ondansetron 4 mg tablet,disintegrating 4 mg PO Q8H PRN (Reason: nausea and vomiting) Qty: 10 0RF No Action levothyroxine 88 mcg tablet 88 mcg PO DAILY Label Comments: TAKE 1 TABLET BY MOUTH ONCE DAILY Referrals Follow up/Referrals: Provider,Referral, MD [Primary Care Provider] - See instructions Activity Restrictions/Add. Instructions Additional Instructions/Restrictions: Drink extra fluids with and between meals. If you have difficulty drinking, try very small amounts of water or suck on ice chips. ? Avoid fruit juices, as these do not replace minerals and can actually increase diarrhea. ? Children and adults can use sports drinks to replenish electrolytes. Younger children and infants should use products formulated for children, like oral rehydration solutions. ? Eat food in small amounts and let your stomach recover. ? Get lots of rest. You may feel tired or weak. ? No greasy or fried foods for the next 24-48 hours BRAT diet Bananas Rice Apples and Buras ? Make sure to drink plenty of liquids ? Return if needed ? Straight to ER if any life threatening symptoms ? Zofran as prescribed ? You was given an outpatient order for diarrhea panel, please collect specimen and bring back to outpatient lab then call back to the [facility] or follow up with family doctor for results ? Follow up with family doctor in the next 48-72 hours if no improvement or any worsening of symptoms Clinical Impressions Clinical Impression: Viral syndrome Stand Alone Forms Stand Alone Forms: Work/School Release Instructions Patient Instructions: Nausea and Vomiting-Adult, Diarrhea, DI for Viral Syndrome Discharge ED Provider: Isa Vaughan [facility] [place] General Stated complaint: Vomiting; aches; fever Mode of Arrival: Ambulatory Source of Information: Patient Limitations: No Limitations Time Seen by Provider: 10/30/22 17:41 Description of Symptoms (Recalled from Triage Doc. by RN): vomit, body aches, fever, chills, and cough HEENT Symptoms (Recalled from RN notes): Yes Resp Symptoms (Recalled from RN notes): No Skin Symptoms (Recalled from RN notes): No MS Symptoms (Recalled from RN notes): No Functional Status (Recalled from RN notes): n/a History of Present Illness Provider Complaint: Patient states that she started feeling bad over the weekend with body aches, and chills and yesterday she started N/V/D States that her daughter was having similar symptoms and today she has still been having nausea and last vomited this am but still had some diarrhea Related Data Home Medications Medication Instructions Recorded Confirmed levothyroxine 88 mcg tablet 88 mcg PO DAILY THYROID 06/21/22 10/30/22 Previous Rx's Medication Instructions Recorded ondansetron 4 mg disintegrating 4 mg PO Q8H PRN nausea and 10/30/22 tablet vomiting #10 tabs Allergies Allergy/AdvReac Type Severity Reaction Status Date / Time No Known Allergies Allergy Verified 10/30/22 17:36 Worker's Comp Is this a Worker's Comp case?: No [facility] Disclaimer: The information contained in this section may have been updated after the patient was seen, as this information can be updated by other users. Medical History (Updated 10/30/22 @ 17:48 by Isa Vaughan APRN) Thyroid disease Surgical History History of appendectomy History of section History of tubal ligation Social History Smoking Status: Unknown if ever smoked alcohol intake: never current occupational status: employed Travel in the last 8 weeks: None ROS Obtained: Yes All systems reviewed & no additional complaints except as documented and Yes Systems reviewed as ap
[2022-10-30 18:07] VITALS: BP 129/94; PULSE 110; RESP 20; TEMP 37.3; O2SAT 98
== END 2022-10-30 18:06 | disposition home or self-care (01) ==
PROVIDERS: Emergency Provider Nurse Practitioner
DX: R11.2 Nausea with vomiting, unspecified (principal); R19.7 Diarrhea, unspecified; R50.9 Fever, unspecified; B34.9 Viral infection, unspecified
CPT/HCPCS: 87804; 87880; 99212; 99214; G0463

== ENCOUNTER 2023-07-31 14:10 | Emergency (ER) | payer BC, SELFPAY ==
[2023-07-31 15:09] VITALS: BP 131/88; PULSE 84; RESP 18; TEMP 36.9; O2SAT 99; BMI 29.7
--- NOTE | 2023-07-31 15:15 | ED_ITS ---
Discharge Plan Disposition Patient Disposition: Home, Self-Care Condition: Good Prescriptions Prescriptions: New amoxicillin [amoxicillin] 875 mg tablet 875 mg PO Q12H Qty: 20 0RF [id number] [Bromfed DM] 2-30-10 mg/5 mL Syrup 5 ml PO Q6H PRN (Reason: Cough) Qty: 240 0RF No Action levothyroxine 88 mcg tablet 88 mcg PO DAILY Patient Comments: TAKE 1 TABLET BY MOUTH ONCE DAILY ondansetron 4 mg tablet,disintegrating 4 mg PO Q8H PRN (Reason: nausea and vomiting) Qty: 10 0RF amoxicillin [amoxicillin] 500 mg tablet 500 mg PO TID 10 Days Qty: 30 0RF Referrals Follow up/Referrals: Soraida Ely APRN [Primary Care Provider] - See instructions Activity Restrictions/Add. Instructions Additional Instructions/Restrictions: Drink plenty of fluids. Take tylenol or ibuprofen for pain or fever. Take the medications as directed. Follow up with your regular doctor. GO TO THE ER FOR ANY WORSENING SYMPTOMS Clinical Impressions Clinical Impression: Pharyngitis, Acute viral syndrome Instructions Patient Instructions: Sore Throat, DI for Pharyngitis/Tonsillopharyngitis -- A dult Discharge ED Provider: Catalino Pacheco [facility] General Stated complaint: h/a, sore throat Mode of Arrival: Ambulatory Source of Information: Patient Limitations: No Limitations Time Seen by Provider: 07/31/23 15:15 Description of Symptoms (Recalled from Triage Doc. by RN): Presents to [facility] with c/o headahce and sore throat since this morning. 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 Related Data Home Medications Medication Instructions Recorded Confirmed levothyroxine 88 mcg tablet 88 mcg PO DAILY THYROID 06/21/22 10/30/22 Previous Rx's Medication Instructions Recorded ondansetron 4 mg disintegrating 4 mg PO Q8H PRN nausea and 10/30/22 tablet vomiting #10 tabs amoxicillin 500 mg tablet 500 mg PO TID 10 days #30 tabs 07/11/23 amoxicillin 875 mg tablet 875 mg PO Q12H #20 tabs 07/31/23 [id number]-ysavyyfmjuosivg-[id number] 5 ml PO Q6H PRN Cough #240 mL 07/31/23 2 mg-30 mg-10 mg/5 mL oral syrup (Bromfed DM) Allergies Allergy/AdvReac Type Severity Reaction Status Date / Time No Known Allergies Allergy Verified 10/30/22 17:36 Worker's Comp Is this a Worker's Comp case?: No [facility] Disclaimer: The information contained in this section may have been updated after the patient was seen, as this information can be updated by other users. Medical History (Updated 07/31/23 @ 15:56 by Catalino Pacheco APRN) Thyroid disease Surgical History History of appendectomy History of section History of tubal ligation Social History Smoking Status: Unknown if ever smoked alcohol intake: never current occupational status: employed Travel in the last 8 weeks: None ROS Obtained: Yes All systems reviewed & no additional complaints except as documented Constitutional Constitutional: Reports chills and Reports fever(s) Eyes Eyes: Denies eye discharge ENT Ears, Nose, Mouth, and Throat: Reports as per HPI Cardiovascular Cardiovascular: Denies chest pain Respiratory Respiratory: Denies chest congestion and Reports cough Gastrointestinal Gastrointestingal: Reports nausea; Denies abdominal pain, constipation, cramping, diarrhea or vomiting Musculoskeletal Musculoskeletal: Denies arthralgias Integumentary/Breasts Skin/Breast: Denies rash Neurologic Neurologic: Denies paresthesias Physical Exam General General appearance: alert and in no apparent distress Head Head exam: atraumatic, normocephalic and normal inspection Eye Eye exam: Present normal appearance, PERRL and EOMI ENT ENT exam: Present mucous membranes moist and normal external ear exam Expanded ENT Exam TM/Canal exam: Bilateral TM: erythema and bulging Nose exam: Absent sinus tenderness Mouth exam: Present normal external inspection; Absent drooling Teeth exam: Present normal inspection Throat exam: Present tonsillar erythema, tonsillomegaly and tonsillar exudate Neck Neck exam: Present normal inspection, full ROM and trachea midline; Absent tenderness, meningismus or lymphadenopathy Chest Chest inspection: Present normal inspection and symmetric chest wall rise; Absent tenderness Respiratory Respiratory exam: Present normal lung sounds bilaterally; Absent respiratory distress, wheezes or stridor Cardiovascular Cardiovascular exam: Present regular rate and normal rhythm; Absent systolic murmur or diastolic murmur Abdominal Exam Abdominal exam: Present soft and normal bowel sounds; Absent distention, tenderness, guarding, rebound or rigidity Extremities Exam Extremities exam: Present normal inspection and normal capillary refill; Absent calf tenderness Back Exam Back exam: Present normal inspection and full ROM; Absent tenderness, CVA tenderness (R) or CVA tenderness (L) Neurological Exam Neurological exam: Present alert, oriented X3 and CN II-XII intact Psychiatric Psychiatric exam: Present normal affect and normal mood Skin Skin exam: Present warm, dry, intact and normal color Medical Decision Making Medical Records Medical records reviewed: No I reviewed the patient's medical records. Kvng Inquiry Pt receiving controlled substance: No Vital Signs: 07/31/23 15:09 Temperature 98.4 F Temperature Source Oral Pulse Rate [Right] 84 Respiratory Rate 18 Blood Pressure [Right Arm] 131/88 Blood Pressure Mean [Right Arm] 102 Blood Pressure Source [Right Arm] Automatic Cuff Blood Pressure Position [Right Arm] Sitting 02 Sat by Pulse Oximetry 99 Oxygen Delivery Method Room Air Lab Data Lab results reviewed: Yes I reviewed the patient's lab results.
[2023-07-31 15:34] LABS: UTC Strep Screen (Rapid) Negative (Negative)
[2023-07-31 15:47] LABS: UTC Influenza A Antigen Negative (Negative); UTC Influenza B Antigen Negative (Negative)
[2023-07-31 16:15] VITALS: BP 131/88; PULSE 84; RESP 18; TEMP 36.9; O2SAT 99
== END 2023-07-31 16:15 | disposition home or self-care (01) ==
PROVIDERS: Emergency Provider Nurse Practitioner Family; PCP Nurse Practitioner Family
DX: J02.9 Acute pharyngitis, unspecified (principal); R51.9 Headache, unspecified; R05.9 Cough, unspecified; R53.81 Other malaise; R68.83 Chills (without fever); E03.9 Hypothyroidism, unspecified; B34.9 Viral infection, unspecified
CPT/HCPCS: 87804; 87880; 99212; 99214; G0463